=== PATIENT | male | born 1990 | race Caucasian/White ===

== ENCOUNTER 2016-08-23 17:55 | Emergency (ER) | payer OTHER ==
[~2016-08-23] VITALS: Ht 165.1 cm; Wt 74.5 kg
[2016-08-23] MEDS: KETOROLAC TROMETHAMINE 60 MG/2 ML VIAL IM ONE ×2 (20:33→20:37)
[2016-08-23 22:42] VITALS: BP 139/73
== END 2016-08-23 22:48 | disposition home or self-care (01) ==
LOC: EMS 18:00
DX: S06.0X9A Concussion with loss of consciousness of unspecified duration, initial encounter (principal); W50.1XXA Accidental kick by another person, initial encounter; Y93.89 Activity, other specified; Y92.89 Other specified places as the place of occurrence of the external cause; Y99.8 Other external cause status
CPT/HCPCS: 73660; 99284; J1885

== ENCOUNTER 2016-09-09 19:15 | Emergency (ER) | payer OTHER ==
[~2016-09-09] VITALS: Ht 165.1 cm; Wt 75.9 kg
[2016-09-10 00:58] VITALS: BP 111/70
== END 2016-09-10 01:01 | disposition home or self-care (01) ==
LOC: EMS 19:15
DX: F07.81 Postconcussional syndrome (principal)
CPT/HCPCS: 70450; 99284